=== PATIENT | female | born 1965 | race Caucasian/White ===

== ENCOUNTER 2016-09-06 17:52 | Emergency (ER) | payer BC, MEDICAID ==
[~2016-09-06] VITALS: Ht 157.5 cm; Wt 82.2 kg
[2016-09-06 18:26] LABS: HEMOGLOBIN 15.7 g/dL (11.7-16.4)
[2016-09-06] MEDS ORDERED: SODIUM CHLORIDE FLUSH 10ML SYR IVF ONE (18:30)
[2016-09-06] MEDS ORDERED: KETOROLAC 30 MG/1 ML IVPush ONE (18:30)
[2016-09-06] MEDS ORDERED: MORPHINE SULFATE 4 MG/ML, 1ML IVPush PRN (18:30)
[2016-09-06] MEDS ORDERED: ONDANSETRON 2MG/ML, 2ML IVPush ONE (18:30)
[2016-09-06] MEDS ORDERED: KETOROLAC 30 MG/1 ML ONE (18:34)
[2016-09-06] MEDS ORDERED: ONDANSETRON 2MG/ML, 2ML ONE (18:35)
[2016-09-06 18:42] LABS: ASPARTATE AMINO TRANSFERASE 16 U/L (15-37); BLOOD UREA NITROGEN 13 mg/dL (7-18)
[2016-09-06] MEDS ORDERED: OMNIPAQUE 350 MG/ML, 100ML BOTTLE ONE (20:34)
[2016-09-06 20:37] VITALS: BP 106/66
== END 2016-09-06 21:13 | disposition home or self-care (01) ==
LOC: ED 19:24
DX: K57.32 Diverticulitis of large intestine without perforation or abscess without bleeding (principal); Z90.49 Acquired absence of other specified parts of digestive tract
CPT/HCPCS: 36415; 74177; 80053; 81003; 83690; 85025; 96374; 96375; 99285; J1885; J2405; Q9967